=== PATIENT | female | born 1950 | race Caucasian/White ===

== ENCOUNTER 2017-08-02 12:40 | Emergency (ER) | payer MEDICARE ==
[2017-08-02] MEDS ORDERED: Triple Antibiotic Oint 1 GM Packet ONE (13:02)
[2017-08-02] MEDS ORDERED: Cephalexin 500 MG CAP ONE (13:02)
[2017-08-02] MEDS ORDERED: Naproxen 500 MG TAB ONE (13:02)
== END 2017-08-02 13:12 | disposition home or self-care (01) ==
LOC: MADERS 12:40
DX: S51.811A Laceration without foreign body of right forearm, initial encounter (principal); E78.5 Hyperlipidemia, unspecified; I10 Essential (primary) hypertension; F41.9 Anxiety disorder, unspecified; Z79.899 Other long term (current) drug therapy; V86.99XA Unspecified occupant of other special all-terrain or other off-road motor vehicle injured in nontraffic accident, initial encounter
CPT/HCPCS: 99282